=== PATIENT | female | born 1990 | race Caucasian/White ===

== ENCOUNTER 2016-12-28 12:00 | Outpatient (CLI) | payer MEDICAID ==
[2016-12-28 12:52] LABS: AMNISURE (ROM) NEGATIVE (NEGATIVE)
[2016-12-28 12:59] LABS: APPEARANCE,URINE CLOUDY; BILIRUBIN,URINE NEGATIVE (NEGATIVE); GLUCOSE, URINE NEGATIVE (NEGATIVE); KETONES,URINE NEGATIVE (NEGATIVE); LEUKOCYTE ESTERASE,URINE SMALL (NEGATIVE); NITRITE,URINE NEGATIVE (NEGATIVE); PROTEIN,URINE NEGATIVE (NEGATIVE); URINE SPECIFIC GRAVITY 1.011; UROBILINOGEN,URINE NEGATIVE mg/dL (<2.0)
[2016-12-28 13:16] LABS: URINE BARBITURATES SCREEN NEGATIVE; URINE METHADONE SCREEN NEGATIVE; URINE OPIATES LOW NEGATIVE; URINE PHENCYCLIDINE SCREEN NEGATIVE
--- NOTE | 2016-12-30 07:28 | Non Stress Test Report ---
Non Stress Test Datetime Report Generated by CPN: 12/30/2016 07:28 DEMOGRAPHIC EGA NST: 38.6 INDICATION Indication for Study: Other Indication for Study (NST) Other: LC MONITORING Monitor Explained: Monitor Explained; Test Explained; Patient Verbalized Understanding Time on Monitor: 12/28/2016 12:27 Time off Monitor: 12/28/2016 13:02 NST Duration: 35 NST INTERVENTIONS NST Interventions: None Physician Notified NST: C Chris CNM BABY A: [id number] BABY A Movement : Present Contraction Frequency : irregular FHR Baseline : 150 Accelerations : 15X15 Decelerations : None Variability : Moderate 6-25bpm NST Review: Meets Criteria for Reactive NST NST Review and Verified By : Elizabeht Barajas RN NSDwayne Results: Reactive NST REPORT Report Trigger: Send Report
== END 2016-12-28 13:15 | disposition home or self-care (01) ==
LOC: LC 12:00
PROVIDERS: ATTEND Specialist
DX: O47.1 False labor at or after 37 completed weeks of gestation (principal); Z3A.38 38 weeks gestation of pregnancy
CPT/HCPCS: 59025; 80307; 81005; 84112; 87210

== ENCOUNTER 2016-12-30 07:40 | Inpatient (IN) | payer MEDICAID ==
[2016-12-30] MEDS ORDERED: FENTANYL CITRATE INJ/PF 100 MCG/2 ML AMPUL ONE (08:09)
[2016-12-30] MEDS ORDERED: OXYTOCIN 10 UNIT/ML VIAL ONE (08:09)
[2016-12-30] MEDS ORDERED: MIDAZOLAM 2 MG/2 ML INJ ONE (08:10)
[2016-12-30] MEDS ORDERED: EPHEDRINE SULFATE INJ 50 MG/1 ML AMPULE ONE (08:10)
[2016-12-30] MEDS ORDERED: LIDOCAINE 2% INJ-PF (20 MG/ML) 10 ML AMPUL ONE (08:10)
[2016-12-30] MEDS ORDERED: CEFAZOLIN SODIUM 2 GM in DEXTROSE 5%-WATER 50 ML IV PRN (08:23)
[2016-12-30] MEDS ORDERED: CITRIC ACID/SODIUM CITRATE ORAL SOLN 15 ML UDCUP ONE (08:26)
[2016-12-30] MEDS ORDERED: CEFAZOLIN 2 GM/D5W RTU 2 GM/50 ML RTUPB IV ONE (08:26)
[2016-12-30 08:28] LABS: APPEARANCE,URINE SLIGHTLY-CLOUDY; BILIRUBIN,URINE NEGATIVE (NEGATIVE); GLUCOSE, URINE NEGATIVE (NEGATIVE); KETONES,URINE 20 mg/dL (NEGATIVE); LEUKOCYTE ESTERASE,URINE NEGATIVE (NEGATIVE); NITRITE,URINE NEGATIVE (NEGATIVE); PROTEIN,URINE NEGATIVE (NEGATIVE); URINE SPECIFIC GRAVITY 1.005; UROBILINOGEN,URINE NEGATIVE mg/dL (<2.0)
[2016-12-30 08:33] LABS: ABSOLUTE BASOPHILS # (AUTO) 0.1 10^3/uL (0.0-0.2); ABSOLUTE EOSINOPHILS # (AUTO) 0.1 10^3/uL (0.0-0.6); ABSOLUTE LYMPHOCYTES (AUTO) 1.7 10^3/uL (0.5-4.7); ABSOLUTE MONOCYTES (AUTO) 1.1 10^3/uL (0.1-1.4); ABSOLUTE NEUT (AUTO) 11.3 10^3/uL (1.7-8.2); BASOPHILS % (AUTO) 0.4 % (0-2); EOSINOPHILS % (AUTO) 0.6 % (0-6); HEMATOCRIT 34.8 % (36.0-47.0); HEMOGLOBIN 11.8 g/dL (12.0-15.5); HGB HCT DIFFERENCE 0.6; MEAN CORPUSCULAR VOLUME 91 fl (80-97); RED BLOOD COUNT 3.82 10^6/uL (3.72-5.28); RED CELL DISTRIBUTION WIDTH 13.4 % (11.5-14.0); WHITE BLOOD COUNT 14.3 10^3/uL (4.0-10.5)
[2016-12-30 08:55] LABS: URINE BARBITURATES SCREEN NEGATIVE; URINE METHADONE SCREEN NEGATIVE; URINE OPIATES LOW NEGATIVE; URINE PHENCYCLIDINE SCREEN NEGATIVE
[2016-12-30] MEDS ORDERED: MEPERIDINE HCL/PF INJ 25 MG/1 ML DISP.SYRIN IV PRN (09:12)
[2016-12-30] MEDS ORDERED: FENTANYL CITRATE INJ/PF 100 MCG/2 ML AMPUL IV PRN ×3 (09:12)
[2016-12-30] MEDS ORDERED: PROMETHAZINE HCL INJ 25 MG/1 ML VIAL IV PRN ×2 (09:12)
[2016-12-30] MEDS ORDERED: OXYCODONE-ACETAMINOPHEN 5-325 MG TABLET PO PRN ×3 (09:12→12:30)
[2016-12-30] MEDS ORDERED: MORPHINE SULFATE 10 MG/ML INJ IV PRN (09:12)
[2016-12-30] MEDS ORDERED: DIPHENHYDRAMINE HCL 50 MG/ML VIAL IV PRN (09:12)
[2016-12-30] MEDS ORDERED: ACETAMINOPHEN 100 ML IV ONE (09:34)
[2016-12-30] MEDS ORDERED: MORPHINE SULFATE 10 MG/ML INJ ONE (09:45)
[2016-12-30] MEDS ORDERED: OXYTOCIN/NORMAL SALINE 20 UNIT/1,000 ML RTUINJ ONE (09:45)
[2016-12-30] MEDS ORDERED: MEPERIDINE HCL/PF INJ 25 MG/1 ML DISP.SYRIN ONE (10:46)
[2016-12-30] MEDS ORDERED: HYDROMORPHONE HCL INJ/PF 2 MG/ML AMPULE ONE (12:02)
--- NOTE | 2016-12-30 12:04 | Admission Physical ---
Datetime Report Generated by CPN: 12/30/2016 12:03 CURRENT ADMISSION Chief Complaint: Uterine Contractions Indication for Induction: Not Applicable Admit Impression- Other: Breech Admit Plan: Admit to Unit; Initiate Section Protocol ALLERGIES Medication Allergies: Yes Medication Allergies: Penicillins (12/30/2016) Medication Allergies: Penicillins (12/28/2016) Latex: No Latex Allergies OBSTETRICAL HISTORY EDC: 01/05/2017 00:00 : 3 Para: 2 Term: 2 : 0 SAB: 0 IAB: 0 Ectopic: 0 Livin Cesareans: 0 VBACs: 0 Multiple Births: 0 Gestational Diabetes: No Rh Sensitization: No Incompetent Cervix: No EMILY: No Infertility: No ART Treatment: No Uterine Anomaly: No IUGR: No Hx Previous C/S: No Macrosomia: No Hx Loss/Stillborn: No PIH: No Hx : No Placenta Previa/Abruption: No Depression/PP Depression: No PTL/PROM: No Post Hemorrhage: No Current Procedures: Ultrasound; NST Obstetrical History Comments: G1: 10/2009, G2: 10/2015 G3: current, breech SEE RECORDS Alcohol: No Marijuana : No Cocaine: No Other Illicit Drugs: No Cigarettes: Never Smoker. [id number] MEDICAL HISTORY Diabetes: No Blood Transfusion: No Pulmonary Disease (Asthma, TB): No Breast Disease: No Hypertension: No Labor Arbitrator Hearing Office Surgery: No Heart Disease: No Hosp/Surgery: Yes Autoimmune Disorder: No Anesthetic Complications: No Kidney Disease: No Abnormal Pap Smear: No Neuro/Epilepsy: No Psychiatric Disorders: No Other Medical Diseases: No Hepatitis/Liver Disease: No Significant Family History: No Varicosities/Phlebitis: No Trauma/Violence : No Thyroid Dysfunction: Yes Medical History Comments: Hypothyroid, childbirth x2 INFECTIOUS HISTORY Gonorrhea: No Genital Herpes: No Chlamydia: No Tuberculosis: No Syphilis: No Hepatitis: No HIV/AIDS Exposure: No Rash or Viral Illness: No HPV: No PHYSICAL EXAM General: Normal HEENT: Normal Neurologic: Normal Thyroid: Deferred Heart: Normal Lungs: Normal Breast: Deferred Back: Normal Abdomen: Normal Genitourinary Exam: Normal Extremities: Normal DTRs: Normal Pelvic Type: Adequate Vital Signs: Reviewed; Within Normal Limits VAGINAL EXAM Dilatation: 6 Effacement: 80 Station: -1 MEMBRANES Membranes: Intact FETUS A EGA: 39.1 Monitoring: External US FHR- Baseline: 140 Variability: Moderate 6-25bpm Accelerations: 15X15 Decelerations: None FHR Category: Category I Presentation: Breech Admit Comment: Will proceed with Primary C/S for Breech presentationas and Labor PLANS FOR LABOR AND DELIVERY Feeding Preference: Both Benefit of Breast Feed Discussed: Yes Circumcision: N/A INFORMED CONSENT Signature: with User ID: Kathleen
[2016-12-30] MEDS ORDERED: OXYTOCIN/NORMAL SALINE 20 UNIT/1,000 ML RTUINJ INJ PRN (12:09)
[2016-12-30] MEDS ORDERED: RINGERS SOLUTION,LACTATED 1,000 ML IV SCH (12:30)
[2016-12-30] MEDS ORDERED: DIPH/PERTUSS(ACELL)/TETANUS VAC/PF 0.5 ML SYR (>=10YO) IM PRN (12:30)
[2016-12-30] MEDS ORDERED: MEASLES,MUMPS&RUBELLA VACC/PF 0.5 ML VIAL SUBCUT PRN (12:30)
[2016-12-30] MEDS ORDERED: HYDROMORPHONE HCL INJ/PF 2 MG/ML AMPULE IV PRN (12:30)
[2016-12-30] MEDS ORDERED: ACETAMINOPHEN 325 MG TABLET PO PRN (12:30)
[2016-12-30] MEDS ORDERED: PROMETHAZINE HCL INJ 25 MG/1 ML VIAL IM PRN (12:30)
[2016-12-30] MEDS ORDERED: SIMETHICONE 80 MG TAB.CHEW PO PRN (12:30)
[2016-12-30] MEDS: OXYCODONE-ACETAMINOPHEN 5-325 MG TABLET PO PRN ×2 (14:03→20:11)
[2016-12-30] MEDS: IBUPROFEN 800 MG TABLET PO SCH ×2 (18:10→23:30)
[2016-12-30] MEDS: DOCUSATE SODIUM 100 MG CAPSULE PO SCH (18:10)
[2016-12-31] MEDS: OXYCODONE-ACETAMINOPHEN 5-325 MG TABLET PO PRN ×6 (01:23→23:38)
[2016-12-31] MEDS: IBUPROFEN 800 MG TABLET PO SCH ×3 (05:47→17:19)
[2016-12-31 06:44] LABS: HEMATOCRIT 36.2 % (36.0-47.0); HEMOGLOBIN 12.2 g/dL (12.0-15.5); HGB HCT DIFFERENCE 0.4; MEAN CORPUSCULAR HEMOGLOBIN 31.4 pg (27.0-33.4); MEAN CORPUSCULAR HGB CONC 33.7 g/dL (32.0-36.0); MEAN CORPUSCULAR VOLUME 93 fl (80-97); RED BLOOD COUNT 3.89 10^6/uL (3.72-5.28); RED CELL DISTRIBUTION WIDTH 13.4 % (11.5-14.0); WHITE BLOOD COUNT 15.7 10^3/uL (4.0-10.5)
[2016-12-31] MEDS: PRENATAL VITAMIN W-O CA NO5/FE FUMARATE/FA CAPSULE PO SCH (09:45)
[2016-12-31] MEDS: DOCUSATE SODIUM 100 MG CAPSULE PO SCH ×2 (09:45→17:19)
--- NOTE | 2016-12-31 10:09 | PDOC PROGRESS REPORT ---
Subjective-OB Subjective: Post Delivery Day: 1 24 year old. Denies any needs at this time, states lochia is stable pain, well controlled, voiding without difficulty, bonding with baby well. Physical Exam (OB) Vital Signs: Temp Pulse Resp BP Pulse Ox 97.5 F 68 14 102/63 100 12/31/16 09:13 12/31/16 09:13 12/31/16 09:13 12/31/16 09:13 12/31/16 09:13 Intake & Output 12/30/16 12/31/16 01/01/17 06:59 06:59 06:59 Intake Total 1645 Output Total 2350 Balance -705 Weight 71.95 kg - PIH/Pre-Eclampsia DTR's: 2 + Clonus: Negative Headache: Absent Epigastric Pain: No Visual Changes: No - Dressing Removed: Yes - opsite coming up had to replace Incision: Dressing Closure Type: Surgical Glue - Lochia Lochia Amount: Moderate 25-50 ml Lochia Color: Rubra/Red - Abdomen Description: Soft, Round Hernia Present: No Fundal Description: Firm, Midline Fundal Height: u/3 - u/4 Objective-Diagnostic Laboratory: 12/31/16 06:14 12/31/16 06:14 WBC 15.7 H RBC 3.89 Hgb 12.2 Hct 36.2 MCV 93 MCH 31.4 MCHC 33.7 RDW 13.4 Plt Count 138 L Assessment and Plan(PN) - Assessment and Plan (1) Status post primary low transverse section Is this a current diagnosis for this admission?: Yes Plan: routine post op care - Time Spent with Patient Time with patient: Less than 15 minutes Critical Time spent with patient: Less than 15 minutes Medications reviewed and adjusted accordingly: Yes - Disposition Anticipated Discharge: Home Within: within 48 hours
[2017-01-01] MEDS: IBUPROFEN 800 MG TABLET PO SCH ×3 (00:45→12:14)
[2017-01-01] MEDS: OXYCODONE-ACETAMINOPHEN 5-325 MG TABLET PO PRN ×2 (06:05→12:36)
[2017-01-01] MEDS ORDERED: MAGNESIUM HYDROXIDE SUSP 30 ML UDCUP PO PRN (06:22)
[2017-01-01] MEDS: PRENATAL VITAMIN W-O CA NO5/FE FUMARATE/FA CAPSULE PO SCH (09:03)
[2017-01-01] MEDS: DOCUSATE SODIUM 100 MG CAPSULE PO SCH (09:03)
--- NOTE | 2017-01-01 09:04 | PDOC DISCHARGE SUMMARY ---
Final Diagnosis Discharge Date: 01/01/17 - Final Diagnosis (1) Status post primary low transverse section Is this a current diagnosis for this admission?: Yes Discharge Data - Discharge Medication Home Medications: Levothyroxine Sodium [Synthroid] 25 mcg PO DAILY 12/28/16 Pnv with Ca,No.72/Iron/FA [Pnv Plus Multivit Tab] 50 tab PO DAILY 12/28 Docusate Sodium [Colace 100 mg Capsule] 100 mg PO BID #60 capsule 01/01/17 Ibuprofen [Motrin 800 mg Tablet] 800 mg PO Q6 #60 tablet 01/01/17 Oxycodone HCl/Acetaminophen [Percocet 5-325 mg Tablet] 1 tab PO Q4HP PRN #30 tablet 01/01/17 Gestational Age: 39.1 Reason(s) for Admission: Ceasarean Section-Primary - breech Procedures: NST Intrapartum Procedure(s): : Low Cervical, Transverse - [place] Data Baby 1 Female at 1 minute: 9 at 5 minutes: 9 Weight: 3.657 kg Home with Mother: Yes Complications: No - Diagnosis Test Laboratory: Temp Pulse Resp BP Pulse Ox 98.9 F 78 15 97/57 L 100 01/01/17 08:41 01/01/17 08:41 01/01/17 08:41 01/01/17 08:41 01/01/17 08:41 12/30/16 12/30/16 12/31/16 07:30 08:21 06:14 RBC 3.82 3.89 Hgb 11.8 L 12.2 Hct 34.8 L 36.2 Urine Opiates Screen NEGATIVE - Discharge information/Instructions Discharge Activity: Activity As Tolerated, Balance Activity w/Rest, No Driving, No Lifting Over 10 Pounds, No Lifting/Push/Pulling, Pelvic Rest, No tub bath Discharge Diet: Regular Disposition: HOME, SELF-CARE Follow up with: [facility] in: 1, Weeks
[2017-01-01 15:51] VITALS: BP 107/64
--- NOTE | 2017-01-07 12:52 | Delivery Summary ---
Del Sum A-C Datetime Report Generated by CPN: 01/07/2017 12:52 DELIVERY PERSONNEL DELIVERY PERSONNEL: [phone] DELIVERY PERSONNEL: [phone] Delivery Doctor:: Omega Escalona DO Anesthesiologist:: Diony Wilson MD RETENTION SPECIALIST:: Cecy Burns CRNA Labor and Delivery Nurse:: Little Barajas RNclay transporter Nurse:: Doreen Bellamy RN Nursery Nurse:: Meredith Marcelo RN Travel Guide/NET MENDER: ST Barb Travel Guide/NET MENDER: Triny Ramírez, SHOVELER MATERNAL INFORMATION Delivery Anesthesia: Spinal Medications After Delivery: Pitocin Bolus-Please Comment; Pitocin Drip 20 Units/1000ml NSS Meds After Delivery Comment: Pitocin 20 units in 1 L NS bolusing per order Maternal Complications: None LABOR SUMMARY EDC: 01/05/2017 00:00 No. Babies in Womb: 1 Attempted: No Labor Anesthesia: None LABOR INFORMATION Reason for Induction: Not Applicable Onset of Labor: 12/30/2016 04:00 Oxytocin: N/A Group B Beta Strep: negative Antibiotics # of Doses: 1 Antibiotics Time of Last Dose: 823 Name of Antibiotic Given: Ancef Steroids Given: None Reason Steroids Not Administered: Not Applicable MEMBRANES Membranes Rupture Method: Artificial Rupture of Membranes: 12/30/2016 08:59 Length of Rupture (hr): 0.00 Amniotic Fluid Color: Clear Amniotic Fluid Amount: Small Amniotic Fluid Odor: Normal STAGES OF LABOR Stage 3 hr: 0 Stage 3 min: 1 Total Time in Labor hr: 5 Total Time in Labor min: 0 VAGINAL DELIVERY Episiotomy: None Laceration Extension: N/A Laceration Type: None Laceration Repair: Not Applicable Sponge Count Correct: N/A Sharps Count Correct: N/A CSECTION DELIVERY Primary Indication: Breech Presentation Secondary Indication: N/A CSection Urgency: Non-Scheduled CSection Incidence: Primary Labor: Labor Elective: Nonelective CSection Incision: Lower Uterine Transverse BABY A INFORMATION Delivery Date/Time: 12/30/2016 08:59 Method of Delivery: Born in Route : No : N/A Forceps: N/A Vacuum Extraction: N/A Shoulder Dystocia : No PRESENTATION/POSITION BABY A Presentation: Breech Cephalic Presentation: N/A Breech Presentation: Dennis PLACENTA INFORMATION BABY A Placenta Delivery Time : 12/30/2016 09:00 Placenta Method of Delivery: Manual Removal Placenta Status: Delivered SCORES BABY A Heart Rate 1 min: >100 bpm Resp Effort 1 min: Good Cry Reflex Irritability 1 min: Cough or Sneeze or Pulls Away Muscle Tone 1 min: Active Motion Color 1 min: Body [place], Extremities Blue Resuscitation Effort 1 min: Tactile Stimulation SCORE 1 MIN: 9 Heart Rate 5 min: >100 bpm Resp Effort 5 min: Good Cry Reflex Irritability 5 min: Cough or Sneeze or Pulls Away Muscle Tone 5 min: Active Motion Color 5 min: Body [place], Extremities Blue Resuscitation Effort 5 min: Tactile Stimulation SCORE 5 MIN: 9 INFANT INFORMATION BABY A Gestational Age at Delivery: 39.1 Gestational Status: Full Term- 39- 40.6 Weeks Outcome : Liveborn Condition : Stable Infant Sex: Female IDENTIFICATION BABY A Verification Date/Time: 12/30/2016 10:13 ID Band Number: [id number] Mother's Name Verified: Yes Infant RN Verifying : KChris Valdiviak, RN. MChris Barajas RN WEIGHT/LENGTH BABY A Infant Birthweight (gm): 3655 Weight (lb): 8 Weight (oz): 1 Infant Length (in): 22.00 Length (cm): 55.88 CORD INFORMATION BABY A No. Cord Vessels: 3 Nuchal Cord : N/A Cord Blood Taken: Yes-For Eval (Mom's Blood Type - or O+) Suction: Mouth; Nose ASSESSMENT BABY A Infant Complications: None Physical Findings at Delivery: Within Normal Limits Respirations: Appears Normal Skin to Skin: No Solar Project Manager/ALS Called : No Care By: Luan Marcelo RN Transferred To: [place] [facility] BABY B INFORMATION : N/A
--- NOTE | 2017-02-08 22:02 | OPERATIVE REPORT E ---
Operative Report NAME: CHECO PRUETT : 1990 AGE: 26Y DATE OF SURGERY: 01/30/2017 ROOM: 214 PREOPERATIVE DIAGNOSES: 1. A 38-week intrauterine . 2. Active labor. 3. Breech presentation. POSTOPERATIVE DIAGNOSES: 1. A 38-week intrauterine . 2. Active labor. 3. Breech presentation. SURGEON: Omega Escalona D.O. DISHWASHER PREPARER: None. OPERATION: Primary low-transverse section. SURGEON: Omega Escalona D.O. DISHWASHER PREPARER: None. ANESTHESIA: Spinal. COMPLICATIONS: None. ESTIMATED BLOOD LOSS: 600 mL. FINDINGS: 1. Viable female at 8:59 a.m. on 12/30/2016. 2. Apgars 8 at one, 9 at five. 3. in natali breech presentation. 4. Normal appearing bilateral fallopian tubes and ovaries. DESCRIPTION OF PROCEDURE: The patient was taken to the operating room where spinal anesthesia was administered. She was than laid in the dorsal supine position with a leftward tilt upon the operating room table. She was then prepped and draped in a normal sterile fashion. A scalpel was then used to make a Pfannenstiel skin incision. The skin incision was carried down through the subcutaneous tissues to the layer of the fascia. The fascia was then incised at the midline, and the fascial incision was then extended bilaterally using the Bovie cautery. The superior fascial edge was grasped with Andrew clamps, elevated, and the rectus muscles dissected off sharply and bluntly. Attention was then turned to the inferior fascial edge. This was grasped with Andrew clamps, elevated, and rectus muscles dissected off sharply and bluntly. The rectus muscles were then in the midline and perineum identified and entered bluntly with the surgeon's hand. A bladder blade was inserted. A scalpel was then used to make a low transverse hysterotomy incision. The infant was discovered to be in the natali breech presentation and delivered through the incision using the breech maneuvers without difficulty and atraumatically. The nose and mouth were suctioned. Cord was clamped and cut. The was handed off to the awaiting nurses. Cord blood was obtained. The placenta was then manually removed from the uterus. The uterus was exteriorized and cleared of all clots and debris. The hysterotomy incision was then reapproximated using 2 layers of 1-0 Vicryl in a running locking fashion. Following closure of the second layer, excellent hemostasis noted. The uterus was then returned to the abdomen. Again the hysterotomy repair was reinspected and found to have excellent hemostasis. The rectus muscles were then reapproximated using 1-0 Vicryl interrupted sutures. The fascia was then closed using 1-0 Vicryl in a running, non-locking fashion. The subcutaneous space was then made hemostatic using Bovie cautery. The skin was closed with absorbable mitzy, covered with an Op-Site, and then with a pressure dressing. At this point in time, the procedure was terminated. All sponge, lap and needle counts were correct x2. The patient tolerated the procedure well. The patient was taken to the recovery room in stable condition. DICTATING PHYSICIAN: Omega Escalona DO [id number] PHY#: [id number] 2015 ID: [id number] JOB#: [id number] ACCT: [id number] cc:Omega Escalona D.O. >
== END 2017-01-01 16:27 | disposition home or self-care (01) | DRG 766 ==
LOC: LC 07:40 → LR 08:07 → 2S 12:02
PROVIDERS: ADMIT Obstetrics & Gynecology; ATTEND Obstetrics & Gynecology
PROC: 10D00Z1 Extraction of Products of Conception, Low, Open Approach (ICD-10-PCS; principal; 2016-12-30)
PROC: 4A1HXCZ Monitoring of Products of Conception, Cardiac Rate, External Approach (ICD-10-PCS; 2016-12-30)
DX: O32.1XX0 Maternal care for breech presentation, not applicable or unspecified (principal); O99.284 Endocrine, nutritional and metabolic diseases complicating childbirth; E03.9 Hypothyroidism, unspecified; Z88.0 Allergy status to penicillin; Z3A.39 39 weeks gestation of pregnancy; Z37.0 Single live birth
CPT/HCPCS: 1961; 36415; 80307; 81005; 85025; 85027; 86592; 86850; 86900; 86901; 94799; J0131; J0690; J1170; J2175; J2250; J2270; J2590; J3010; J3490

== ENCOUNTER 2018-06-05 20:04 | Emergency (ER) | payer MEDICAID ==
[2018-06-05 20:30] VITALS: BP 104/61
== END 2018-06-05 21:15 | disposition left against medical advice (07) ==
LOC: ER 20:04
DX: Z53.21 Procedure and treatment not carried out due to patient leaving prior to being seen by health care provider (principal)

== ENCOUNTER 2020-01-23 15:14 | Emergency (ER) | payer MEDICAID ==
[2020-01-23 15:26] VITALS: BP 110/60
--- NOTE | 2020-01-23 15:33 | ER Document Report ---
ED Medical Screen (RME) - General Chief Complaint: Vag Bleeding, +preg <12wks Stated Complaint: VAGINAL BLEEDING,ABDOMINAL PAIN Time Seen by Provider: 01/23/20 15:28 Primary Care Provider: DAVIDSON SOTO MD [Primary Care Provider] - Follow up as needed Mode of Arrival: Ambulatory Information source: Patient Notes: 30-year-old female presents to ED for complaint of pain vaginal bleeding and severe cramps. She states she went to [facility] on for vaginal bleeding at 12 weeks . She states she did go to follow-up with the [facility] on Tuesday and they said that there was no heart tone. She states that that she had miscarried and then today she started with some severe pelvic cramping and vaginal bleeding. She states she has already miscarried she is just having a lot of bleeding and pain. Will treat with 1 [place] now and get blood urine and ultrasound I have greeted and performed a rapid initial assessment of this patient. A comprehensive ED assessment and evaluation of the patient, analysis of test results and completion of medical decision making process will be conducted by an additional ED providers. TRAVEL OUTSIDE OF THE [place] IN LAST 30 DAYS: No - Related Data Allergies/Adverse Reactions: Penicillins Allergy (Verified 12/30/16 10:00) Physical Exam - Vital signs Vitals: Temp Pulse Resp BP Pulse Ox 98.9 F 101 H 18 110/60 99 01/23/20 15:24 01/23/20 15:24 01/23/20 15:24 01/23/20 15:24 01/23/20 15:24 Course - Vital Signs Vital signs: Temp Pulse Resp BP Pulse Ox 98.9 F 101 H 18 110/60 99 01/23/20 15:24 01/23/20 15:24 01/23/20 15:24 01/23/20 15:24 01/23/20 15:24 Doctor's Discharge - Discharge Referrals: DAVIDSON SOTO MD [Primary Care Provider] - Follow up as needed
[2020-01-23] MEDS ORDERED: NORMAL SALINE 1000 ML 1,000 ML IV ONE (15:34)
[2020-01-23] MEDS ORDERED: HYDROCODONE/ACETAMINOPHEN 5-325 MG TABLET PO ONE (16:13)
[2020-01-23 16:43] LABS: ABSOLUTE LYMPHOCYTES (AUTO) 1.6 10^3/uL (0.5-4.7); ABSOLUTE MONOCYTES (AUTO) 0.8 10^3/uL (0.1-1.4); ABSOLUTE NEUT (AUTO) 12.1 10^3/uL (1.7-8.2); BASOPHILS % (AUTO) 0.2 % (0-2); EOSINOPHILS % (AUTO) 0.2 % (0-6); HEMATOCRIT 40.6 % (36.0-47.0); HEMOGLOBIN 13.7 g/dL (12.0-15.5); LYMPHOCYTES % (AUTO) 10.8 % (13-45); MEAN CORPUSCULAR HEMOGLOBIN 31.8 pg (27.0-33.4); MEAN CORPUSCULAR HGB CONC 33.8 g/dL (32.0-36.0); MEAN CORPUSCULAR VOLUME 94 fl (80-97); MONOCYTES % (AUTO) 5.2 % (3-13); PLATELET COUNT 187 10^3/uL (150-450); RED BLOOD COUNT 4.31 10^6/uL (3.72-5.28); RED CELL DISTRIBUTION WIDTH 13.7 % (11.5-14.0); SEGMENTED NEUTROPHILS % (AUTO) 83.6 % (42-78); TOTAL CELLS COUNTED % (AUTO) 100 %; WHITE BLOOD COUNT 14.5 10^3/uL (4.0-10.5)
--- NOTE | 2020-01-23 16:43 | RADIOLOGY REPORT (SQ) ---
EXAM DESCRIPTION: U/S [id number] TRNABD 1GES W/ODOP IMAGES COMPLETED DATE/TIME: 01/23/2020 4:29 pm REASON FOR STUDY: miscarriage with active bleeding COMPARISON: None. TECHNIQUE: Transabdominal static and realtime grayscale images acquired of the pelvis. Additional se lected spectral and color Doppler images recorded. All images stored on PACs. bHCG: Not available. CLINICAL DATES: 13 weeks, 2 days LIMITATIONS: None. FINDINGS: FETUS: Single Living intrauterine . ULTRASOUND EGA: 10 weeks, 2 days ULTRASOUND NATALY: 08/18/2020 EFW: Not applicable less than 20 weeks. CRL: 2.0 cm, consistent with 8 week, 4 day gestation. FHR: No discernible heart motion. SURVEY: Too early to assess. AMNIOTIC FLUID: Adequate amount. PLACENTA: Not yet developed due to early gestation. SUBCHORIONIC BLEED: No. SIZE OF BLEED: Not applicable. UTERUS: No masses. No anomalies. CERVICAL LENGTH: 2.2 cm Closed. RIGHT ADNEXA: Normal ovary with normal vascular flow. No adnexal free fluid. No adnexal masses. LEFT ADNEXA: Ovary not identified due to poor acoustical window. No adnexal free fluid. No adnexal masses. FREE FLUID: None. OTHER: The gestational sac is elongated and irregular, measuring 5.9 cm, consistent with a 12 week, 0 day gestation. IMPRESSION: Intrauterine gestation with crown-rump length measuring greater than 4 weeks behind clin ical dates of 13 weeks, 2 days and no discernible heart motion, consistent with 2nd trimester p regnancy loss. Trimester of : Second trimester - 13 weeks 1 day to 27 weeks 6 days. TECHNICAL DOCUMENTATION: JOB ID: [id number] [employer]- All Rights Reserved rev-09/30 Reading location - IP/workstation name: [email or web address]
[2020-01-23 17:08] LABS: ALBUMIN 4.5 g/dL (3.5-5.0); ALKALINE PHOSPHATASE 51 U/L (38-126); ANION GAP 8 (5-19); ASPARTATE AMINO TRANSFERASE 20 U/L (14-36); BILIRUBIN,DIRECT 0.2 mg/dL (0.0-0.4); BILIRUBIN,TOTAL 0.9 mg/dL (0.2-1.3); BLOOD UREA NITROGEN 8 mg/dL (7-20); CALCIUM 9.3 mg/dL (8.4-10.2); CARBON DIOXIDE 27 mmol/L (22-30); CHLORIDE 104 mmol/L (98-107); GLUCOSE 86 mg/dL (75-110); POTASSIUM 3.6 mmol/L (3.6-5.0); TOTAL PROTEIN 7.3 g/dL (6.3-8.2)
[2020-01-23 17:37] LABS: APPEARANCE,URINE CLOUDY; BILIRUBIN,URINE NEGATIVE (NEGATIVE); COLOR,URINE YELLOW; GLUCOSE, URINE NEGATIVE (NEGATIVE); KETONES,URINE 20 mg/dL (NEGATIVE); PROTEIN,URINE 100 mg/dL (NEGATIVE); URINE SPECIFIC GRAVITY 1.025; UROBILINOGEN,URINE NEGATIVE mg/dL (<2.0)
== END 2020-01-23 20:34 | disposition left against medical advice (07) ==
LOC: ER 15:14
DX: O20.9 Hemorrhage in early pregnancy, unspecified (principal); O26.891 Other specified pregnancy related conditions, first trimester; R10.2 Pelvic and perineal pain; Z3A.13 13 weeks gestation of pregnancy; Z53.20 Procedure and treatment not carried out because of patient's decision for unspecified reasons; Z88.0 Allergy status to penicillin
CPT/HCPCS: 36415; 76801; 80053; 81001; 84702; 85025; 86850; 86900; 86901; 99281

== ENCOUNTER 2020-01-24 13:19 | Day surgery (SDC) | payer MEDICAID ==
[2020-01-22 16:07] LABS: HEMATOCRIT 38.2 % (36.0-47.0); HEMOGLOBIN 13.4 g/dL (12.0-15.5); MEAN CORPUSCULAR HEMOGLOBIN 32.7 pg (27.0-33.4); MEAN CORPUSCULAR VOLUME 94 fl (80-97); PLATELET COUNT 176 10^3/uL (150-450); RED BLOOD COUNT 4.09 10^6/uL (3.72-5.28); RED CELL DISTRIBUTION WIDTH 13.7 % (11.5-14.0); WHITE BLOOD COUNT 9.2 10^3/uL (4.0-10.5)
[2020-01-22 16:11] LABS: APPEARANCE,URINE SLIGHTLY-CLOUDY; BILIRUBIN,URINE NEGATIVE (NEGATIVE); CALCIUM OXALATE CRYSTALS,URINE MODERATE /HPF; COLOR,URINE YELLOW; GLUCOSE, URINE NEGATIVE (NEGATIVE); KETONES,URINE NEGATIVE (NEGATIVE); LEUKOCYTE ESTERASE,URINE NEGATIVE (NEGATIVE); NITRITE,URINE NEGATIVE (NEGATIVE); PROTEIN,URINE NEGATIVE (NEGATIVE); URINE SPECIFIC GRAVITY 1.023
[~2020-01-24 13:19] MED LIST: KETOROLAC TROMETHAMINE 60 MG/2 ML SDV ONE; LIDOCAINE 2% INJ-PF (20 MG/ML) 2 ML AMPUL ONE; ONDANSETRON HCL INJ/PF 4 MG/2 ML SDV ONE
[2020-01-24] MEDS ORDERED: FENTANYL CITRATE INJ/PF 100 MCG/2 ML AMPUL ONE (13:37)
[2020-01-24] MEDS ORDERED: MIDAZOLAM 2 MG/2 ML INJ ONE (13:37)
[2020-01-24] MEDS ORDERED: PROPOFOL INJ 200 MG/20 ML VIAL IV ONE (13:38)
[2020-01-24] MEDS ORDERED: CEFAZOLIN 1 GM/D5W RTU 1 GM/50 ML RTUPB IV ONE (13:45)
--- NOTE | 2020-01-24 14:44 | Operative Report ---
Operative Report DATE OF SURGERY: 01/24/20 PREOPERATIVE DIAGNOSIS: Missed AB POSTOPERATIVE DIAGNOSIS: Same OPERATION: Suction D&C SURGEON: HERNANDEZ VERA ANESTHESIA: LMAC TISSUE REMOVED OR ALTERED: POC COMPLICATIONS: None ESTIMATED BLOOD LOSS: Less than 25 cc INTRAOPERATIVE FINDINGS: Products of conception PROCEDURE: The patient was taken to the Operating Room where general anesthesia was obtained without difficulty. She was prepped and draped in the normal sterile fashion in the dorsal lithotomy position. Exam under anesthesia was performed and noted above. A speculum was placed in the vagina. The anterior cervix was grasped with a single-tooth tenaculum and the uterus sounded to [] after paracervical block was performed with 8 mL of 1% lidocaine with epinephrine. The cervix was noted to be closed at the beginning of the procedure. Sequential dilators were then used to dilate the cervix to accommodate the the 8 mm suction curet curved. The 8 mm curved suction curet was gently advanced in the usual fashion and good return of tissue. The suction device was then activated and the curet rotated to clear the uterus of the products of conception. A sharp curettage was then performed. The suction device was then gently reintroduced and activated and the curet rotated to clear the uterus of conception which was loosened with recent sharp curettage. The sharp curettage was then performed again until a gritty texture was noted and the cavity was felt to be empty of fu rther tissue. At this time there was minimal bleeding noted from the cervix. All instruments were removed from the patient's cervix and vagina. Silver nitrate was applied to the tenaculum site for hemostasis. Sponge lap needle and instrument counts are correct 2. ancef was given perioperatively. The patient tolerated the procedure well and was taken to the recovery area awake and in stable condition. The patient was discharged home with pain medications.
[2020-01-24] MEDS ORDERED: DIPHENHYDRAMINE HCL 50 MG/ML VIAL IV PRN (14:48)
[2020-01-24] MEDS ORDERED: FENTANYL CITRATE INJ/PF 100 MCG/2 ML AMPUL IV PRN ×3 (14:48)
[2020-01-24] MEDS ORDERED: MEPERIDINE HCL/PF INJ 25 MG/1 ML DISP.SYRIN IV PRN (14:48)
[2020-01-24] MEDS ORDERED: MORPHINE SULFATE 10 MG/ML INJ IV PRN (14:48)
[2020-01-24] MEDS ORDERED: PROMETHAZINE HCL INJ 25 MG/1 ML VIAL IV PRN ×2 (14:48)
[2020-01-24] MEDS ORDERED: OXYCODONE-ACETAMINOPHEN 5-325 MG TABLET PO PRN ×3 (14:48→15:03)
[2020-01-24] MEDS ORDERED: CEFAZOLIN 1 GM/D5W RTU 1 GM/50 ML RTUPB IV PRN (14:52)
[2020-01-24] MEDS ORDERED: IBUPROFEN 800 MG TABLET PO PRN (15:03)
[2020-01-24] MEDS ORDERED: ONDANSETRON HCL 8 MG TABLET PO PRN (15:15)
[2020-01-24 16:00] LABS: CHLAM PCR NOT DETECTED (NOT DETECT)
[2020-01-24 16:15] VITALS: BP 99/57
== END 2020-01-24 16:20 | disposition home or self-care (01) ==
LOC: OROUT 13:19
PROVIDERS: ATTEND Student in an Organized Health Care Education/Training Program
DX: O02.1 Missed abortion (principal); Z03.818 Encounter for observation for suspected exposure to other biological agents ruled out; E07.9 Disorder of thyroid, unspecified; Z79.899 Other long term (current) drug therapy
CPT/HCPCS: 36415 ×2; 85027; 87635; 81025; 81001; 87491; 87591; 88305 ×2; 01965; 59820; J2250; J0690; J1885; J3010; J2405; J2704; J3490; C9803; 1965